=== PATIENT | male | born 1935 | race Caucasian/White ===

== ENCOUNTER 2020-01-02 15:54 | Emergency (ER) | payer OTHER ==
[~2020-01-02] VITALS: Ht 165.1 cm; Wt 49.9 kg
[~2020-01-02 15:54] MED LIST: LIPITOR20 MG; VASOTEC20 M1
[2020-01-02] MEDS ORDERED: ATORVASTATIN CA10 MG (16:14)
[2020-01-02] MEDS ORDERED: LOTREL 10-20 M1 EACH (16:14)
[2020-01-02] MEDS ORDERED: PROSCAR5 MG (16:14)
== END 2020-01-02 18:57 | disposition home or self-care (01) ==
LOC: ER
DX: R42 Dizziness and giddiness (principal)